=== PATIENT | female | born 1970 | race Asian ===

== ENCOUNTER → 2018-10-10 11:46 | Outpatient (CLI) | payer OTHER, SELFPAY ==
--- NOTE | 2018-10-10 | DI.MG.S_ITS ---
BILATERAL DIGITAL SCREENING MAMMOGRAM 3D/2D WITH CAD: 10/10/2018 CLINICAL: Routine screening. Comparison is made to exams dated: 08/31/2014 mammogram - [facility] and 01/25/2012 mammogram - [facility]. The tissue of both breasts is heterogeneously dense. This may lower the sensitivity of mammography. Current study was also evaluated with a Computer Aided Detection (CAD) system. There is an oval focal asymmetry in the left breast central to the nipple middle depth. There also is an asymmetry in the left breast anterior depth lateral region seen on the craniocaudal view only. No other significant masses, calcifications, or other findings are seen in either breast. IMPRESSION: INCOMPLETE: NEEDS ADDITIONAL IMAGING EVALUATION The oval focal asymmetry in the left breast central to the nipple middle depth is indeterminate. Additional views with possible ultrasound are recommended. The asymmetry in the left breast anterior depth lateral region seen on the craniocaudal view only is indeterminate. Additional views with possible ultrasound are recommended. This exam was interpreted at Station ID: [id number]. NOTE: For mammograms, a report in lay terms will be sent to the patient. Approximately 15% of breast malignancies will not be visualized mammographically. In the management of a palpable breast mass, a negative mammogram must not discourage biopsy of a clinically suspicious lesion. Electronically Signed By: Rosalba londono/stew:10/10/2018 14:08:13 letter sent: Additional Imaging Needed ACR BI-RADS Category 0: Incomplete 3340F
== END ==
PROVIDERS: Visit Provider Internal Medicine
DX: Z12.31 Encounter for screening mammogram for malignant neoplasm of breast (principal)
CPT/HCPCS: 77063; 77067

== ENCOUNTER → 2018-11-14 09:58 | Outpatient (CLI) | payer OTHER, SELFPAY ==
--- NOTE | 2018-11-14 | DI.US.S_ITS ---
PROCEDURE: US PELVIC COMPLETE INDICATIONS: ADDITIONAL VIEW MAMMO LEFT BREAST LELOMYOMA OF UTERUS TECHNIQUE: Real-time scanning was performed of the pelvic organs, with image documentation. Additional endovaginal scanning was necessary due to incomplete visualization of the adnexal and endometrial structures by transabdominal scanning. COMPARISON: [facility], US, PELVIC COMPLETE, 11/26/2016, 12:16. FINDINGS: Transabdominal scanning: Limited scanning through the kidneys shows no hydronephrosis. No pathologic free abdominal or pelvic fluid. Endovaginal scanning: Uterus: Uterus is normal in size at 11.2 x 4.7 x 5.8 cm. 3 x 2.5 x 3 cm left anterior intramural fibroid is seen, not significantly changed in size from previous study. 1.5 x 1.2 x 1.3 cm anterior intramural fibroid is also noted, also unchanged from previous study. The endometrium measures 14.5 mm in combined thickness. Poorly defined heterogeneous echogenicity structure within the endometrial canal is seen measures 1.9 x 1.2 x 1.9 cm in size with internal vascularity. Ovaries: Right ovary measures 2.3 x 1.5 x 2.1 cm in size. Left ovary measures 2.9 x 1.3 x 1.4 cm in size. No gross solid appearing ovarian lesion. Normal blood flow is seen in bilateral ovaries on color Doppler images. IMPRESSION: 1. 1.9 x 1.2 x 1.9 cm heterogeneous echogenicity and solid appearing structure within the endometrium and show internal vascularity concerning for endometrial mass or polyp. MEDICAL RECORDS SUPERVISOR correlation is recommended. 2. Stable appearing uterine fibroids as described above. 3. Normal appearing bilateral ovaries. Dictated by: Yfn Dueñas M.D. on 11/14/2018 at 12:22 Approved by: Yfn Dueñas M.D. on 11/14/2018 at 12:25
--- NOTE | 2018-11-14 | DI.US.S_ITS ---
LIMITED ULTRASOUND OF LEFT BREAST: 11/14/2018 CLINICAL: Additional evaluation requested from prior study. Comparison is made to exams dated: 11/14/2018 mammogram, 10/10/2018 mammogram, 08/31/2014 mammogram - [facility], and 01/25/2012 mammogram - [facility]. Real-time and Doppler ultrasound of the left breast outer aspect and retroareolar/central to the nipple regions were performed. Carbajal scale images of the real-time examination were reviewed. There is a 0.6 x 0.6 x 0.3 cm oval circumscribed anechoic cyst in the left breast central to the nipple/retroareolar region with increased posterior acoustic enhancement/through-transmission and no vascularity on Doppler ultrasound. There is a second 0.8 x 0.6 x 0.3 cm oval circumscribed anechoic cyst in the left breast central to the nipple/retroareolar region with increased posterior acoustic enhancement/through-transmission and no vascularity on Doppler ultrasound. There is a 0.6 x 0.5 x 0.4 cm oval circumscribed anechoic cyst in the left breast at 6:30 position 3 cm from the nipple with increased posterior acoustic enhancement/through-transmission and no vascularity on Doppler ultrasound. There are low-level internal echogenic foci consistent with debris. There is an internal echogenic septations it demonstrates no vascularity on Doppler ultrasound. There is a second 0.4 x 0.3 x 0.2 cm oval circumscribed anechoic cyst in the left breast at 3:00 position 3 cm from nipple with increased posterior acoustic enhancement/through-transmission and no vascularity on Doppler ultrasound. These findings correlate with the findings seen on comparison screening and diagnostic mammography. IMPRESSION: BENIGN 1) Multiple benign simple and complicated cysts within the left breast measuring up to 0.8 cm in greatest diameter. 2) There is no sonographic evidence of malignancy in the imaged regions of the left breast. Return to annual mammogram screening schedule is recommended. The patient is advised to monitor her breasts and to return sooner for re-evaluation should she feel anything grow or change. This exam was interpreted at Station ID: [id number]. Electronically Signed By: Joselito Cuba M.D. ecl/:11/14/2018 12:51:30 letter sent: Normal Exam Ultrasound BI-RADS: 2 Benign
--- NOTE | 2018-11-14 | DI.MG.S_ITS ---
UNILATERAL LEFT DIGITAL DIAGNOSTIC MAMMOGRAM 3D/2D WITH ADDITIONAL VIEWS: 11/14/2018 CLINICAL: Additional evaluation requested from prior study. Comparison is made to exams dated: 10/10/2018 mammogram, 08/31/2014 mammogram - [facility], and 01/25/2012 mammogram - [facility]. The tissue of left breast is heterogeneously dense. This may lower the sensitivity of mammography. Previously identified oval focal asymmetry in the left breast central to the nipple middle depth on comparison screening mammograms persists with additional views. Previously identified asymmetry in the left breast anterior depth lateral region seen on the craniocaudal view only on comparison screening mammograms persists with additional views. This asymmetry is oval shaped with indistinct margins and is located approxiamtely 3 cm lateral to the nipple. IMPRESSION: INCOMPLETE: NEEDS ADDITIONAL IMAGING EVALUATION 1) Previously identified oval focal asymmetry in the left breast central to the nipple middle depth on comparison screening mammograms persists with additional views. A targeted ultrasound is recommended for further evaluation, and will be performed immediately following this exam. 2) Previously identified asymmetry in the left breast anterior depth lateral region seen on the craniocaudal view only on comparison screening mammograms persists with additional views. A targeted ultrasound is recommended for further evaluation, and will be performed immediately following this exam. This exam was interpreted at Station ID: [id number]. NOTE: For mammograms, a report in lay terms will be sent to the patient. Approximately 15% of breast malignancies will not be visualized mammographically. In the management of a palpable breast mass, a negative mammogram must not discourage biopsy of a clinically suspicious lesion. Electronically Signed By: Joselito Cuba M.D. ecl/:11/14/2018 12:41:45 letter sent: Additional Imaging Needed ACR BI-RADS Category 0: Incomplete 3340F
== END ==
PROVIDERS: Visit Provider Internal Medicine
DX: R92.8 Other abnormal and inconclusive findings on diagnostic imaging of breast (principal); N60.02 Solitary cyst of left breast; D25.1 Intramural leiomyoma of uterus; Z01.84 Encounter for antibody response examination
CPT/HCPCS: 36415; 76642; 76830; 76856; 77065; 86735; 86762; 86765; G0279

== ENCOUNTER 2018-12-19 12:22 | Day surgery (SDC) | payer OTHER, SELFPAY ==
[2018-12-10 08:28] VITALS: BMI 25.6
[2018-12-19] VITALS (11 sets, daily range): BP systolic 123–158; BP diastolic 82–99; PULSE 66–86; RESP 12–18; TEMP 36–36.8; O2SAT 95–100; BMI 25.6
--- NOTE | 2018-12-19 | PATH_ITS ---
[facility] Accession Number: [id number] . 01 Material submitted: . PART A: ENDOMETRIAL POLYP PART B: ENDOMETRIAL CURETTINGS . 02 Diagnosis: Endometrial Polyp, Removal: Benign (non-atypical) glandular hyperplasia in a background of disordered proliferative endometrium with breakdown and shedding; negative for cytologic atypia or malignancy. Portions of endometrial polyp are present. MRV/12/22/2018 . 02 Electronically signed: . aMrilyn Kessler MD, Pathologist NPI- [id number] . 01 Gross description: . Received two formalin-filled containers, both labeled with the patient's name: . A. In a container labeled #1. Endometrial polyp, are multiple fragments of tissue, mucoid material, and blood which aggregate to 2.0 x 1.0 x 0.5 cm. The specimen is filtered and entirely submitted in cassette A. B. In a container labeled endometrial curettings, the specimen consists of approximately a 2 cc aggregate of tissue, mucoid material, and blood, which is filtered, wrapped, and entirely submitted in cassette B. (DC:[id number]) /FRR . 02 Pathologist provided ICD-10: N84.0 . 02 CPT . 826519 Performed at: 01 [facility] [address] [facility], [place], [place] [id number] MD Matt Fay MD Phone: [phone] Performed at: 02 [facility] [address] [place], [place] [id number] MD Yolie Cooley MD Phone: [phone]
[2018-12-19] MEDS: LACTATED RINGERS 1,000 ML 100 ML IV (13:24)
[2018-12-19] MEDS: CEFOTETAN 2 GM/50 ML PIGGYBACK IV (13:30)
--- NOTE | 2018-12-19 14:15 | P.OP_ITS ---
Operative Date/Time/Diagnoses Date of procedure: 12/19/18 Time of procedure: 14:11 Pre-op diagnosis: Menorrhagia endometrial mass Post-op diagnosis: same ( mass was endometrial polyp) Procedure: Procedures Operation Date: 12/19/18 13:30 Actual Procedures Side Surgeon p Hysteroscopy D&C-Myomectomy Timothy Cobb MD Indications: menorrhagia Thickened endometrium Endometrial mass Surgeon: Timothy Cobb Anesthesia Type: General Operative Notes Findings: endometrial polyp and thickened endometrium Closure Type: not applicable Specimen(s): endometrial curettings and endometrial polyp Estimated blood loss (mL): 50 Blood products transfused: none Procedure in detail: the patient was placed supine upon the operating table. She was then placed in the dorsal lithotomy position and examined under anesthesia. Under anesthesia she was felt to have a normal size uterus anterior and no adnexal masses. The patient was then draped and prepared in usual fashion. A posterior weighted retractor was set in place and the anterior lip of the cervix grasped with a toothed tenaculum. Uterine cavity sounded to seven and 0.5 cm. The uterine cervix was dilated to a Hegar is 11. Initially and then to Hegar 13. the hysteroscope was introduced and the endometrial cavity visualized. Patient had and anterior polyp and a thickened endometrium. Both tubal orifices could be identified. The ring forceps was introduced and the polyp removed without difficulty. Curettage removed remaining endometrium. The hysteroscope was reintroduced and the cavity was clean. No bleeding was seen. The hysteroscope was removed. The tenaculum posterior weighted retractor jairo francine. Patient was taken to the recovery room in satisfactory condition. Photographs were taken Complications: none Post-operative Condition: stable Disposition: PACU Plan for aftercare: home
--- NOTE | 2018-12-19 14:15 | PM.OBDS.1 ---
Discharge Providers Date of admission: Discharge Date: 12/19/18 Primary care physician: unknown Consults: none Discharge provider: Timothy Cobb MD Summary Date Patient Seen: 12/19/18 Time Patient Seen: 14:16 Procedures: hysteroscopy, polypectomy, D&C Hospital Course: patient had a history of menorrhagia and endometrial mass plus thickened endometrium. She was taken to surgery where she underwent exam under anesthesia, dilatation of the cervix, hysteroscopy, polypectomy, and endometrial curettage. Postprocedure the patient did well Time Spent with Patient Total time spent providing and/or coordinating discharge services: Exam Vital Signs (past 8 hours): - 12/19/18 13:00 Temperature 98.3 F Pulse Rate 84 Respiratory Rate 16 Blood Pressure 155/97 H Pulse Oximetry 100 Oxygen Delivery Method Room Air Discharge Plan Discharge Med Rec/Prescriptions Prescriptions: No Action No Known Home Medications RF: 0 Discharge Orders: Discharge (Now); Ordered 12/19/18 Ordered By: Timothy Cobb Discharge Data Attending Provider: Timothy Cobb
--- NOTE | 2018-12-19 14:19 | PM.DS.1 ---
History of Present Illness Date Patient Seen: 12/19/18 Time Patient Seen: 14:19 Chief complaint: [id number] HYSTEROSCOPY D&C/MYOMECTOMY Narrative: patient was admitted because of menorrhagia, thickened endometrium and endometrial mass. Patient underwent hysteroscopy D&C and polypectomy. Post procedure she did well and had no problems Discharge Providers Discharge Date: 12/19/18 Primary care physician: unknown Consults: none Discharge provider: Timothy Cobb MD Summary Discharge Diagnosis: endometrial polyp Thickened endometrial Status post hysteroscopy, D&C, polypectomy Hospital Course: patient was admitted for menorrhagia thickened endometrium and endometrial polyp. She underwent D&C and hysteroscopy in the polyp was removed. Post procedure she did well Status at Discharge Cognitive/behavioral status at discharge: oriented Functional status at discharge: independent ambulation Overall status at discharge: patient is back to baseline Time Spent with Patient Less than 30 minutes Exam Vital Signs (past 8 hours): - 12/19/18 13:00 Temperature 98.3 F Pulse Rate 84 Respiratory Rate 16 Blood Pressure 155/97 H Pulse Oximetry 100 Oxygen Delivery Method Room Air Narrative Exam Narrative: minimal vaginal bleeding Discharge Plan Discharge Plan Patient Disposition: Home Discharge Med Rec/Prescriptions Prescriptions: New oxycodone-acetaminophen [Percocet] 5-325 mg tablet 1 tab PO Q4-6H PRN (Reason: pain) Qty: 20 RF: 0 No Action No Known Home Medications RF: 0 Discharge Orders: Discharge (Now); Ordered 12/19/18 Ordered By: Timothy Cobb Provider Discharge Instructions Diet: Diet as Tolerated Activity: of bed Other treatments: none Skin/Wound/Dressing Care Report to your healthcare provider any signs of infection, such as:: chills, fever, increased pain and unusual drainage Dressing: none Discharge Data Attending Provider: Timothy Cobb
[2018-12-19] MEDS: fentaNYL 100 MCG/2 ML INJ 50 MCG IV (14:28)
[2018-12-19] MEDS: KETOROLAC 30 MG/ML VIAL IV (14:40)
[2018-12-19] MEDS: OXYCODONE/ACETAMINOPHEN 5/325 TABLET 1 TAB PO (15:33)
== END 2018-12-19 16:05 | disposition home or self-care (01) ==
PROC: 0UDB8ZZ Extraction of Endometrium, Via Natural or Artificial Opening Endoscopic (ICD-10-PCS; CPT 58558; principal; 2018-12-19 13:30)
DX: N84.0 Polyp of corpus uteri (principal)
CPT/HCPCS: 58558; 88305; J1100; J1885; J2250; J2405; J2704; J3010

== ENCOUNTER → 2021-12-11 10:58 | Outpatient (CLI) | payer OTHER, SELFPAY ==
--- NOTE | 2021-12-11 | DI.MG.S_ITS ---
BILATERAL DIGITAL SCREENING MAMMOGRAM 3D/2D WITH CAD: 12/11/2021 CLINICAL: Routine screening. Comparison is made to exams dated: 11/14/2018 ultrasound, 11/14/2018 mammogram, 10/10/2018 mammogram, and 08/31/2014 mammogram - [facility]. The tissue of both breasts is heterogeneously dense. This may lower the sensitivity of mammography. Current study was also evaluated with a Computer Aided Detection (CAD) system. No significant masses, calcifications, or other findings are seen in either breast. There has been no significant interval change. IMPRESSION: NEGATIVE There is no mammographic evidence of malignancy. A 1 year screening mammogram is recommended. This exam was interpreted at Station ID: [id number]. NOTE: For mammograms, a report in lay terms will be sent to the patient. Approximately 15% of breast malignancies will not be visualized mammographically. In the management of a palpable breast mass, a negative mammogram must not discourage biopsy of a clinically suspicious lesion. Electronically Signed By: Shine bynum/stew:12/11/2021 13:54:25 letter sent: Normal Exam ACR BI-RADS Category 1: Negative 3341F
== END ==
PROVIDERS: PCP Physician Assistant Medical; Referring Provider Physician Assistant Medical; Visit Provider Physician Assistant Medical
DX: Z12.31 Encounter for screening mammogram for malignant neoplasm of breast (principal)
CPT/HCPCS: 77063; 77067

== ENCOUNTER → 2023-05-22 16:05 | Outpatient (CLI) | payer OTHER, SELFPAY ==
--- NOTE | 2023-05-22 | DI.MG.S_ITS ---
BILATERAL DIGITAL SCREENING MAMMOGRAM 3D/2D WITH CAD: 05/22/2023 CLINICAL: Routine screening. Comparison is made to exams dated: 12/11/2021 mammogram, 10/10/2018 mammogram, and 08/31/2014 mammogram - [facility]. Both breasts are heterogeneously dense, which may obscure small masses (category c / 51-75% glandular tissue). Current study was also evaluated with a Computer Aided Detection (CAD) system. There is a possible developing oval focal asymmetry in the right breast at 7 o'clock middle depth. This is more prominent. No other significant masses, calcifications, or other findings are seen in either breast. IMPRESSION: INCOMPLETE: NEEDS ADDITIONAL IMAGING EVALUATION The possible developing oval focal asymmetry in the right breast is indeterminate. Additional views with possible ultrasound are recommended. Based on the Tyrer Cuzick model (a risk assessment model) the patient's lifetime risk is 7.1% and her 10 year risk is 1.9%. According to the ACR, ACS, and NCCN guidelines, an annual breast MRI exam along with mammogram is recommended if the patient's lifetime risk is 20% or greater. This exam was interpreted at Station ID: [id number]. NOTE: For mammograms, a report in lay terms will be sent to the patient. Approximately 15% of breast malignancies will not be visualized mammographically. In the management of a palpable breast mass, a negative mammogram must not discourage biopsy of a clinically suspicious lesion. Electronically Signed By: Shine bynum/stew:05/23/2023 16:50:49 letter sent: Additional Imaging Needed ACR BI-RADS Category 0: Incomplete 3340F
== END ==
PROVIDERS: PCP Physician Assistant Medical; Referring Provider Physician Assistant Medical; Visit Provider Physician Assistant Medical
DX: Z12.31 Encounter for screening mammogram for malignant neoplasm of breast (principal)
CPT/HCPCS: 77063; 77067

== ENCOUNTER → 2023-08-05 08:52 | Outpatient (CLI) | payer OTHER, SELFPAY ==
--- NOTE | 2023-08-05 | DI.MG.S_ITS ---
UNILATERAL RIGHT DIGITAL DIAGNOSTIC MAMMOGRAM 3D/2D WITH ADDITIONAL VIEWS: 08/05/2023 CLINICAL: Additional evaluation requested from prior study. Comparison is made to exams dated: 05/22/2023 mammogram, 12/11/2021 mammogram, and 10/10/2018 mammogram - [facility]. The right breast is heterogeneously dense, which may obscure small masses (category c / 51-75% glandular tissue). The focal asymmetry seen on recent screening mammogram did not persist with additional imaging and is consistent with superimposition of normal breast tissue. No significant masses, calcifications, or other findings are seen in the breast. IMPRESSION: NEGATIVE Superimposition of normal breast tissue. No mammographic evidence of malignancy. A 1 year screening mammogram is recommended. Findings and recommendations were conveyed to the patient during today's evaluation. Based on the Tyrer Cuzick model (a risk assessment model) the patient's lifetime risk is 7.0% and her 10 year risk is 2.0%. According to the ACR, ACS, and NCCN guidelines, an annual breast MRI exam along with mammogram is recommended if the patient's lifetime risk is 20% or greater. This exam was interpreted at Station ID: [id number]. NOTE: For mammograms, a report in lay terms will be sent to the patient. Approximately 15% of breast malignancies will not be visualized mammographically. In the management of a palpable breast mass, a negative mammogram must not discourage biopsy of a clinically suspicious lesion. Electronically Signed By: Jodie Duval M.D., PH.D eb/:08/05/2023 09:33:52 ACR BI-RADS Category 1: Negative 3341F
== END ==
PROVIDERS: PCP Internal Medicine; Referring Provider Internal Medicine; Visit Provider Internal Medicine
DX: R92.8 Other abnormal and inconclusive findings on diagnostic imaging of breast (principal)
CPT/HCPCS: 77065; G0279

== ENCOUNTER → 2024-12-21 08:51 | Outpatient (CLI) | payer BC, OTHER, SELFPAY ==
--- NOTE | 2024-12-21 08:53 | DI.MG.S_ITS ---
MM screening mammo BI: 12/21/2024. BI-RADS: 0 CLINICAL: 54-year old female for bilateral screening mammogram. Tyrer-Cuzick lifetime risk of 5.5%. No personal or first-degree family history of breast cancer. History of ovarian cancer in one first-degree relative. PRIOR EXAMS 08/05/2023, 05/22/2023, 12/11/2021, 11/14/2018, 10/10/2018. MAMMOGRAPHY TECHNIQUE: 2D and 3D (tomosynthesis) digital mammographic views obtained, with additional images as needed for full coverage. Current study was also evaluated with a Computer Aided Detection (CAD) system. DENSITY C. The breasts are heterogeneously dense, which may obscure small masses. MAMMOGRAPHY FINDINGS Right: CC only, Outer, Middle depth, measuring 0.6 cm: Asymmetry needing additional imaging evaluation. Left: No suspicious mass, asymmetry, microcalcification, or other abnormality seen. No significant change from comparison. IMPRESSION: Right (Asymmetry): CC only, Outer, Middle depth, measuring 0.6 cm * Incomplete - asymmetry needing additional imaging evaluation. Left * No evidence of malignancy. RECOMMENDATIONS Right: CC only, Outer, Middle depth * Further evaluation with diagnostic mammography and diagnostic ultrasound. Ultrasound to be performed only if needed. OVERALL ASSESSMENT CATEGORY BI-RADS-0: Incomplete - Need Additional Imaging Evaluation. ELECTRONICALLY SIGNED: Loly Holder M.D. on 12/21/2024 at 02:58:25 PM PT Interpreting Station ID: [id number]
== END ==
PROVIDERS: PCP Internal Medicine; Referring Provider Internal Medicine; Visit Provider Internal Medicine
DX: Z12.31 Encounter for screening mammogram for malignant neoplasm of breast (principal); Z80.41 Family history of malignant neoplasm of ovary; R92.333 Mammographic heterogeneous density, bilateral breasts
CPT/HCPCS: 77063; 77067

== ENCOUNTER → 2025-01-12 09:02 | Outpatient (CLI) | payer BC, OTHER, SELFPAY ==
--- NOTE | 2025-01-12 09:03 | DI.MG.S_ITS ---
MM diagnostic mammo unilat RT, US breast RT limited: 01/12/2025 BI-RADS: 3 CLINICAL: 54-year old female for right diagnostic mammogram and right diagnostic breast ultrasound that is a recall from screening on 12/21/2024. Tyrer-Cuzick lifetime risk of 5.5%. No personal or first-degree family history of breast cancer. History of ovarian cancer in one first-degree relative. PRIOR EXAMS Mammogram(s): 12/21/2024. Six Other Exams on 08/05/2023, 05/22/2023, 12/11/2021, 11/14/2018, 10/10/2018. MAMMOGRAPHY TECHNIQUE: 2D and 3D (tomosynthesis) digital mammographic views obtained, with additional images as needed for full coverage. Current study was also evaluated with a Computer Aided Detection (CAD) system. ULTRASOUND TECHNIQUE Real-time santana scale and color doppler imaging of the area of clinical interest was performed with image documentation. TARGETED Right Breast Ultrasound: Real-time ultrasound exam was performed focused to area of clinical and/or imaging concern. DENSITY Right: C. The breasts are heterogeneously dense, which may obscure small masses. MAMMOGRAPHY FINDINGS Right: CC only, Outer: There are several small 0.4 - 0.6 cm partially circumscribed asymmetries on focal CC spot compression. This likely represents fibrocystic tissue. ULTRASOUND FINDINGS Right: Lower Outer at 7:30, 3 cm from nipple. Previous report: CC only, Outer: There are at least two microcyst clusters or lymph nodes, too small to characterize, in the lower outer right breast. There is posterior acoustic enhancement. These probably correlate with the mammogram findings. No solid findings. IMPRESSION: Right: Lower Outer at 7:30, 3 cm from nipple. Previous report: CC only, Outer * Probably Benign. RECOMMENDATIONS Right: Lower Outer at 7:30, 3 cm from nipple * Six month followup with diagnostic mammography and diagnostic ultrasound. COMMENTS: Findings and recommendations were conveyed to the patient during today's evaluation. OVERALL ASSESSMENT CATEGORY BI-RADS-3: Probably Benign. ELECTRONICALLY SIGNED: Luisa Bell M.D. on 01/12/2025 at 12:13:17 PM PT Interpreting Station ID: [id number]
== END ==
PROVIDERS: PCP Internal Medicine; Referring Provider Physician Assistant; Visit Provider Physician Assistant
DX: R92.8 Other abnormal and inconclusive findings on diagnostic imaging of breast (principal); N63.13 Unspecified lump in the right breast, lower outer quadrant; R92.331 Mammographic heterogeneous density, right breast; Z80.41 Family history of malignant neoplasm of ovary
CPT/HCPCS: 76642; 77065; G0279